=== PATIENT | male | born 1985 ===

== ENCOUNTER 2017-06-30 12:46 | Emergency (ER) | payer OTHER ==
[2017-06-30 12:46] VITALS: BMI 28.1
[2017-06-30 12:52] VITALS: TEMP 98.1
--- NOTE | 2017-06-30 13:25 | ED PDOC ---
HPI: General Adult Time Seen by Provider: 06/30/17 13:02 Chief Complaint (Nursing): Chest Pain Chief Complaint (Provider): Chest Discomfort History Per: Patient History/Exam Limitations: no limitations Onset/Duration Of Symptoms: Other (x 1 month) Current Symptoms Are (Timing): Still Present Additional Complaint(s): Mr. Johnson is a 31 year old male who presents to the ED for chest discomfort x 1 month, worse when eating or swallowing food as well as laying flat. No shortness of breath, vomiting or abdominal pain. PMD: No Provider Past Medical History Reviewed: Historical Data, Nursing Documentation, Vital Signs Vital Signs: Last Vital Signs Temp 98.1 F 06/30/17 12:50 Pulse 70 06/30/17 12:50 Resp 16 06/30/17 12:50 BP 114/72 06/30/17 12:50 Pulse Ox 99 06/30/17 14:43 - Medical History PMH: Kidney Stones, Chronic Kidney Disease - Family History Family History: States: Unknown Family Hx - Home Medications Home Medications: Ambulatory Orders Medication Instructions Recorded Oxycodone HCl/Acetaminophen 1 tab PO Q6 PRN #18 tab 12/29/14 [Percocet 325 mg-5 mg] Tamsulosin HCl [Flomax] 0.4 mg PO DAILY #15 cap 12/29/14 Metoclopramide [Reglan] 10 mg PO Q8 #10 tab 06/30/17 Pantoprazole Sodium [Protonix] 40 mg PO DAILY #30 tablet. 06/30/17 - Allergies Allergies/Adverse Reactions: Allergies Allergy/AdvReac Type Severity Reaction Status Date / Time No Known Allergies Allergy Verified 12/29/14 04:45 Review of Systems ROS Statement: Except As Marked, All Systems Reviewed And Found Negative Cardiovascular: Positive for: Other (Chest discomfort worse when eating or swallowing food as well as laying flat) Respiratory: Negative for: Shortness of Breath Gastrointestinal: Negative for: Vomiting, Abdominal Pain Physical Exam - Reviewed Nursing Documentation Reviewed: Yes Vital Signs Reviewed: Yes - Physical Exam Appears: Positive for: Well, Non-toxic Head Exam: Positive for: ATRAUMATIC, NORMAL INSPECTION, NORMOCEPHALIC Skin: Positive for: Normal Color, Warm, Dry Eye Exam: Positive for: Normal appearance, EOMI, PERRL ENT: Positive for: Normal ENT Inspection Neck: Positive for: Normal Cardiovascular/Chest: Positive for: Regular Rate, Rhythm Respiratory: Positive for: Normal Breath Sounds. Negative for: Respiratory Distress Gastrointestinal/Abdominal: Positive for: Normal Exam Back: Positive for: Normal Inspection Extremity: Positive for: Normal ROM. Negative for: Deformity Neurologic/Psych: Positive for: Alert, Oriented (x 3). Negative for: Motor/ Sensory Deficits - Laboratory Results Result Diagrams: 06/30/17 13:30 06/30/17 13:30 - ECG O2 Sat by Pulse Oximetry: 99 Medical Decision Making Medical Decision Making: Time: 13:14 Plan: - CMP - Troponin I - CBC - Chest X-Ray Time: 13:52 Chest X-Ray FINDINGS: LUNGS: No active pulmonary disease. PLEURA: No significant pleural effusion identified. No pneumothorax apparent. CARDIOVASCULAR: Normal. OSSEOUS STRUCTURES: No significant abnormalities. VISUALIZED UPPER ABDOMEN: Normal. OTHER FINDINGS: None. IMPRESSION: No active disease. Scribe Attestation: Documented by Jerry Aparicio, acting as a scribe for Hugo Ruelas MD. Provider Scribe Attestation: All medical record entries made by the Scribe were at my direction and personally dictated by me. I have reviewed the chart and agree that the record accurately reflects my personal performance of the history, physical exam, medical decision making, and the department course for this patient. I have also personally directed, reviewed, and agree with the discharge instructions and disposition. Disposition - Clinical Impression Clinical Impression: GERD (gastroesophageal reflux disease), Esophageal spasm - Patient ED Disposition Is Patient to be Admitted: No Counseled Patient/Family Regarding: Studies Performed, Diagnosis, Need For Followup, Rx Given - Disposition Referrals: Marino Boucher MD [Staff Provider] - Disposition: Routine/Home Disposition Time: 15:22 Condition: FAIR Prescriptions: Metoclopramide [Reglan] 10 mg PO Q8 #10 tab Pantoprazole Sodium [Protonix] 40 mg PO DAILY #30 tablet.dr Instructions: Acid Reflux (Gastroesophageal Reflux Disease) in Adults, Esophageal Stricture Forms: [employer] ([place])
[2017-06-30 13:41] LABS: BASO # 0.1 K/uL (0.0-0.2); BASO % 1.5 % (0.0-2.0); EOS # 0.1 K/uL (0.0-0.7); EOS % 2.2 % (0.0-4.0); HEMOGLOBIN 15.2 g/dL (12.0-18.0); LYMPH % 41.7 % (20.0-40.0); MEAN CELL VOLUME 89.5 fl (80.0-94.0); MEAN CORPUSCULAR HEMOGLOBIN 30.3 pg (27.0-31.0); MEAN CORPUSCULAR HGB CONC 33.8 g/dL (33.0-37.0); MONO # 0.5 K/uL (0.0-0.8); MONO % 9.8 % (0.0-10.0); NEUT # 2.1 K/uL (1.8-7.0); NEUT % 44.8 % (50.0-75.0); NRBC % 0.1 % (0.0-0.0); RBC 5.03 Mil/uL (4.40-5.90); RED CELL DISTRIBUTION WIDTH 13.3 % (11.5-14.5); WHITE BLOOD COUNT 4.7 K/uL (4.8-10.8)
--- NOTE | 2017-06-30 13:54 | RAD ---
HISTORY: chest pain COMPARISON: None. TECHNIQUE: Chest PA and lateral FINDINGS: LUNGS: No active pulmonary disease. PLEURA: No significant pleural effusion identified. No pneumothorax apparent. CARDIOVASCULAR: Normal. OSSEOUS STRUCTURES: No significant abnormalities. VISUALIZED UPPER ABDOMEN: Normal. OTHER FINDINGS: None. IMPRESSION: No active disease.
[2017-06-30 14:00] LABS: ALB/GLOB RATIO 1.3 (1.0-2.1); ALBUMIN 4.5 g/dL (3.5-5.0); ALT/SGPT 69 U/L (21-72); AST/SGOT 36 U/L (17-59); BLOOD UREA NITROGEN 20 mg/dl (9-20); CALCIUM 9.2 mg/dL (8.4-10.2); GFR AFRICAN-AMERICAN > 60; GFR NON-AFRICAN AMERICAN > 60
[2017-06-30 16:03] VITALS: BP 110/70; PULSE 76; RESP 18; O2SAT 98
== END 2017-06-30 15:38 | disposition home or self-care (01) ==
LOC: H.ER 12:46
DX: K21.9 Gastro-esophageal reflux disease without esophagitis (principal); N18.9 Chronic kidney disease, unspecified; K22.4 Dyskinesia of esophagus